=== PATIENT | female | born 1965 | race Caucasian/White ===

== ENCOUNTER 2019-02-06 21:02 | Emergency (ER) | payer BC, OTHER ==
--- NOTE | 2019-02-06 21:19 | EDM.PDOC ---
ED HPI GENERAL MEDICAL PROBLEM - General Chief Complaint: Upper Extremity Injury/Pain Stated Complaint: POSSIBLE BROKEN WRIST LEFT ARM Time Seen by Provider: 02/06/19 21:05 Source of Information: Reports: Patient, Family History Limitations: Reports: No Limitations - History of Present Illness INITIAL COMMENTS - FREE TEXT/NARRATIVE: 53-year-old female was on the ice when she slipped and landed on her left arm, sustaining an injury to the wrist. She has deformity and pain. Onset: Sudden Duration: Hour(s): (Within the past hour) Location: Reports: Upper Extremity, Left Associated Symptoms: Reports: Other (Mild back discomfort) Left Wrist Pain Score (Numeric/FACES): 8 - Related Data Allergies Allergy/AdvReac Type Severity Reaction Status Date / Time No Known Allergies Allergy Verified 02/06/19 21:08 Home Meds: Home Meds NK [No Known Home Meds] 02/06/19 [History] Past Medical History [employer]IAN History: Reports: - Infectious Disease History Infectious Disease History: Reports: Chicken Pox Social & Family History - Tobacco Use Smoking Status *Q: Never Smoker - Caffeine Use Caffeine Use: Reports: Coffee - Recreational Drug Use Recreational Drug Use: No Review of Systems - Review of Systems Review Of Systems: See Below Constitutional: Denies: Fever Respiratory: Denies: Shortness of Breath Cardiovascular: Denies: Chest Pain Skin: Denies: Bruising Neurological: Denies: Paresthesia ED EXAM, GENERAL - Physical Exam Exam: See Below Exam Limited By: No Limitations General Appearance: Alert, No Apparent Distress, Anxious Respiratory/Chest: No Respiratory Distress Extremities: Other (Left wrist has deformity and extreme tenderness to palpation or attempted movement) Neurological: Alert Psychiatric: Anxious Course - Vital Signs Last Recorded V/S: Last Vital Signs Temp 97.9 F 02/06/19 21:09 Pulse 63 02/06/19 21:09 Resp 16 02/06/19 21:09 BP 174/117 H 02/06/19 21:09 Pulse Ox 99 02/06/19 21:09 - Orders/Labs/Meds Orders: Active Orders 24 hr Category Date Time Status DME for Discharge [COMM] Stat Oth 02/06/19 21:55 Ordered - Re-Assessments/Exams Free Text/Narrative Re-Assessment/Exam: 02/06/19 21:19 Wedding ring was removed immediately. An x-ray of the left wrist was then ordered. 02/06/19 21:55 X-ray confirmed a slightly displaced comminuted fracture of the distal radius. Sugar tong splint was applied to the arm and she was placed in a sling. She will recheck with orthopedics this weekend when she gets home. She was also supplied with 6 Vicodin for extra pain control. Departure - Departure Time of Disposition: 22:05 Disposition: Home, Self-Care 01 Clinical Impression: Distal radius fracture, left Qualifiers: Encounter type: initial encounter Fracture type: closed Fracture morphology: Colles' Qualified Code(s): S52.532A - Colles' fracture of left radius, initial encounter for closed fracture - Discharge Information Instructions: Wrist Fracture Treated With Immobilization, [id number] Referrals: PCP,None [Primary Care Provider] - Forms: ED Department Discharge Care Plan Goals: Keep wrist in splint and sling until rechecked by orthopedics. Take anti- inflammatories, and add stronger pain medication if needed. Elevation should help. Sepsis Event Note - Evaluation Sepsis Screening Result: No Definite Risk - Focused Exam Vital Signs: Vital Signs Temp Pulse Resp BP Pulse Ox 02/06/19 21:09 97.9 F 63 16 174/117 H 99 Date Exam was Performed: 02/06/19 Time Exam was Performed: 22:18 - My Orders Last 24 Hours: My Active Orders 02/06/19 21:55 DME for Discharge [COMM] Stat - Assessment/Plan Last 24 Hours: My Active Orders 02/06/19 21:55 DME for Discharge [COMM] Stat
--- NOTE | 2019-02-06 21:45 | CRLCR ---
Indication: Fall. Pain. Technique: Three views of the left wrist. Comparison: None Findings: A comminuted intra-articular distal radial fracture is identified with approximately 15 degrees of angulation anterior. An ulnar styloid fracture is also identified. Impression: Distal radial and ulnar fractures. Dictated by Valerie Chavez MD @ Feb 06 2019 9:42PM Signed by Dr. Valerie Chavez @ Feb 06 2019 9:43PM
== END 2019-02-06 22:05 | disposition home or self-care (01) ==
LOC: JP.ED 21:02
DX: S52.532A Colles' fracture of left radius, initial encounter for closed fracture (principal); W01.0XXA Fall on same level from slipping, tripping and stumbling without subsequent striking against object, initial encounter
CPT/HCPCS: 29125; 73110-LT; 99283-25